=== PATIENT | male | born 1935 | race Two or more races ===

== ENCOUNTER 2023-12-21 12:41 | Inpatient (IN) | payer OTHER ==
[~2023-12-21] VITALS: Ht 165.1 cm; Wt 40.6 kg
[2023-12-21 12:55] VITALS: O2SAT 87
[2023-12-21 13:01] LABS: Base Excess 0.9 mmol/L (-2.0-2.0)
[2023-12-21] MEDS: ALBUTEROL SULF 2.5 MG/0.5ML(0.5%) NEB SOLN HHN ONE (13:08)
[2023-12-21] MEDS: IPRATROPIUM BROM 0.5 MG/2.5ML INH SOL HHN ONE (13:09)
[2023-12-21 13:17] LABS: Hematocrit 40.6 % (41.0-53.0); Hemoglobin 13.3 g/dL (13.5-17.5); Mean Corpuscular Hemoglobin 28.1 pg (28.0-32.0); Mean Corpuscular Hgb Conc. 32.7 g/dL (32.0-36.0); Red Blood Cells 4.73 10^6/uL (4.5-5.90); Red Cell Distribution Width 15.8 % (11.8-14.3); White Blood Cell 15.8 10^3/uL (4.4-10.8)
[2023-12-21 13:21] LABS: Basophils % (manual) 0 (0.0-2.0); Blast Cells 0; Eosinophils % (manual) 0 (0-7); Metamyelocytes % 0; Myelocytes % 0; Promyelocytes % 0; Reactive Lymphocytes 0
[2023-12-21] MEDS: methylPREDNISolone SOD SUCC 125 MG/2 ML VL IV ONE (13:21)
[2023-12-21 13:34] LABS: Anion Gap 11 (5-15); Carbon Dioxide 26 mmol/L (20-30); Chloride 104 mmol/L (98-107); Potassium 3.4 mmol/L (3.5-5.1); Sodium 141 mmol/L (136-145)
[2023-12-21 13:35] LABS: Calcium 8.7 mg/dL (8.7-10.4)
[2023-12-21 13:40] LABS: BUN/Creatinine Ratio 18.6 (10.0-20.0); Blood Urea Nitrogen 11 mg/dL (9-23); Glucose 196 mg/dL (74-106)
[2023-12-21 13:51] LABS: Lactic Acid w/Reflex 3.9 mmol/L (0.4-2.0)
[2023-12-21 14:39] LABS: Band Neutrophils % (manual) 7; Lymphocytes % (manual) 4 (10.0-50.0); Monocytes % (manual) 3 (0-12); Platelet Estimate Adequate
[2023-12-21 14:49] LABS: COVID19 ANTIGEN SOFIA FIA NEGATIVE (NEGATIVE)
[2023-12-21] MEDS: cefTRIAXone 1GM/50ML D5W 50 ML IV ONE (15:08)
[2023-12-21] MEDS: VANCOMYCIN 1GM/200ML 200 ML IV ONE (16:06)
[2023-12-21 20:00] VITALS: PULSE 93; RESP 17; O2SAT 99
[2023-12-21] MEDS ORDERED: ACETAMINOPHEN 325 MG TAB PO PRN (20:45)
[2023-12-21] MEDS ORDERED: HYDROcodone-ACET 5/325MG TAB PO PRN (20:45)
[2023-12-21] MEDS ORDERED: ONDANSETRON HCL 4 MG/2 ML VIAL IV PRN (20:45)
[2023-12-21] MEDS: NOREPINEPHRINE 8 MG/250ML KIT 250 ML IV SCH (22:02)
[2023-12-21 22:08] LABS: Base Excess 4.7 mmol/L (-2.0-2.0)
[2023-12-21 22:10] VITALS: PULSE 89; RESP 18; O2SAT 97
[2023-12-21] MEDS: IPRATROPIUM BROM 0.5 MG/2.5ML INH SOL NEB SCH (22:15)
[2023-12-21] MEDS: ALBUTEROL SULF 2.5 MG/0.5ML(0.5%) NEB SOLN NEB PRN (22:15)
[2023-12-21 22:18] VITALS: PULSE 92; RESP 18; O2SAT 97
[2023-12-21] MEDS: SODIUM CHLORIDE 0.9% 1,000 ML IV ONE (22:27)
[2023-12-21] MEDS: methylPREDNISolone SOD SUCC 40 MG/ML VL IV SCH (22:27)
[2023-12-21 22:51] VITALS: BP 87/53; PULSE 92; RESP 18; O2SAT 97
[2023-12-22] VITALS (15 sets, daily range): BP systolic 106; BP diastolic 69; PULSE 71–111; RESP 12–20; TEMP 97.8; O2SAT 94–100
[2023-12-22] MEDS ORDERED: HEPARIN SODIUM (PORCINE) 5000 UNITS/ML 1ML VIAL IV ONE ×2 (01:30→03:15)
[2023-12-22 01:59] LABS: Basophils # (auto) 0 10 ^3/uL (0-0.2); Eosinophils # (auto) 0 10 ^3/uL (0-0.8); Hematocrit 36.9 % (41.0-53.0); Hemoglobin 12.1 g/dL (13.5-17.5); Lymphocytes # (auto) 0.6 10 ^3/uL (0.4-5.4); Lymphocytes % (auto) 4.9 % (10.0-50.0); Mean Corpuscular Hgb Conc. 32.7 g/dL (32.0-36.0); Mean Corpuscular Volume 85.6 fL (80.0-100.0); Monocytes # (auto) 0.1 10 ^3/uL (0-1.3); Monocytes % (auto) 1.2 % (0.0-12.0); Neutrophils % (auto) 93.9 % (37.0-80.0); Red Blood Cells 4.31 10^6/uL (4.5-5.90); Red Cell Distribution Width 15.9 % (11.8-14.3); White Blood Cell 11.7 10^3/uL (4.4-10.8)
[2023-12-22 02:17] LABS: INR 1.25 (0.9-1.15); Partial Thromboplastin Time 26.6 SEC (24.5-34.5)
[2023-12-22] MEDS: ALBUTEROL SULF 2.5 MG/0.5ML(0.5%) NEB SOLN NEB PRN (02:27)
[2023-12-22] MEDS: POTASSIUM CHL 20MEQ/100ML 100 ML IV ONE (02:36)
[2023-12-22] MEDS: ASPirin 325 MG TAB PO ONE (03:02)
[2023-12-22] MEDS: HEPARIN SODIUM (PORCINE) 5000 UNITS/ML 1ML VIAL IV ONE (03:13)
[2023-12-22] MEDS: HEPARIN DRIP/D5W 100UNITS/ML 250 ML IV SCH ×2 (03:23→16:37)
[2023-12-22 04:55] LABS: Basophils # (auto) 0 10 ^3/uL (0-0.2); Basophils % (auto) 0.1 % (0.0-2.0); Eosinophils # (auto) 0 10 ^3/uL (0-0.8); Hematocrit 34.9 % (41.0-53.0); Hemoglobin 11.5 g/dL (13.5-17.5); Lymphocytes # (auto) 0.5 10 ^3/uL (0.4-5.4); Lymphocytes % (auto) 5.6 % (10.0-50.0); Mean Corpuscular Hgb Conc. 32.9 g/dL (32.0-36.0); Mean Corpuscular Volume 84.9 fL (80.0-100.0); Monocytes # (auto) 0.2 10 ^3/uL (0-1.3); Monocytes % (auto) 1.8 % (0.0-12.0); Neutrophils # (auto) 8.8 10 ^3/uL (1.6-8.6); Neutrophils % (auto) 92.5 % (37.0-80.0); Nucleated Red Blood Cells % 0.1 %; Red Blood Cells 4.11 10^6/uL (4.5-5.90); Red Cell Distribution Width 15.9 % (11.8-14.3); White Blood Cell 9.5 10^3/uL (4.4-10.8)
[2023-12-22 05:09] LABS: Chloride 105 mmol/L (98-107); Potassium 3.5 mmol/L (3.5-5.1); Sodium 140 mmol/L (136-145)
[2023-12-22 05:10] LABS: Anion Gap 5 (5-15); Carbon Dioxide 30 mmol/L (20-30)
[2023-12-22 05:11] LABS: Calcium 8.3 mg/dL (8.5-10.1)
[2023-12-22 05:16] LABS: BUN/Creatinine Ratio 21.4 (10.0-20.0); Blood Urea Nitrogen 12 mg/dL (9-23); Glucose 173 mg/dL (74-106)
[2023-12-22 06:30] LABS: Urine Bacteria None Seen /hpf (None Seen)
[2023-12-22 06:41] LABS: Urine Blood 2+ /uL (Negative); Urine Clarity Turbid (Clear); Urine Color Yellow (Yellow); Urine Hyaline Cast FEW /lpf (0 - 2); Urine Mucus FEW (None Seen); Urine Protein, UAD 1+ (Negative); Urine Specific Gravity 1.029 (1.001-1.035); Urine Urobilinogen Normal (Negative); Urine WBC 4 /hpf (0 - 3); Urine pH 5.5 (5.0-9.0)
[2023-12-22 09:52] LABS: INR 1.16 (0.9-1.15); Partial Thromboplastin Time 57.2 SEC (24.5-34.5); Prothrombin Time 12.2 sec (9.3-11.8)
[2023-12-22] MEDS ORDERED: ENOXAPARIN SOD 30 MG/0.3 ML SYRINGE SC SCH (10:00)
[2023-12-22] MEDS ORDERED: levoFLOXacin 500MG 100 ML IV SCH (10:00)
[2023-12-22] MEDS: PANTOPRAZOLE 40 MG/10 ML VIAL INJ IV SCH (10:18)
[2023-12-22 16:24] LABS: INR 1.13 (0.9-1.15); Prothrombin Time 11.9 sec (9.3-11.8)
[2023-12-22] MEDS: SODIUM CHLORIDE 0.9% 1,000 ML IV SCH (18:30)
[2023-12-22] MEDS: ATORVASTATIN 20 MG TAB PO SCH (22:05)
[2023-12-22 22:47] LABS: INR 1.13 (0.9-1.15); Prothrombin Time 11.9 sec (9.3-11.8)
[2023-12-22 22:51] LABS: Partial Thromboplastin Time 85.7 SEC (24.5-34.5)
[2023-12-23] VITALS (41 sets, daily range): BP systolic 96–148; BP diastolic 59–98; PULSE 64–130; RESP 14–33; TEMP 97.6–98.4; O2SAT 84–100
[2023-12-23] MEDS: HEPARIN DRIP/D5W 100UNITS/ML 250 ML IV SCH ×2 (01:17→12:12)
[2023-12-23 05:05] LABS: Basophils # (auto) 0 10 ^3/uL (0-0.2); Eosinophils # (auto) 0 10 ^3/uL (0-0.8); Hematocrit 34.9 % (41.0-53.0); Hemoglobin 11.7 g/dL (13.5-17.5); Lymphocytes # (auto) 0.6 10 ^3/uL (0.4-5.4); Lymphocytes % (auto) 5.8 % (10.0-50.0); Mean Corpuscular Hemoglobin 28.7 pg (28.0-32.0); Mean Corpuscular Hgb Conc. 33.6 g/dL (32.0-36.0); Mean Corpuscular Volume 85.4 fL (80.0-100.0); Monocytes # (auto) 0.2 10 ^3/uL (0-1.3); Monocytes % (auto) 2.4 % (0.0-12.0); Neutrophils # (auto) 8.8 10 ^3/uL (1.6-8.6); Neutrophils % (auto) 91.8 % (37.0-80.0); Red Blood Cells 4.09 10^6/uL (4.5-5.90); Red Cell Distribution Width 15.8 % (11.8-14.3); White Blood Cell 9.6 10^3/uL (4.4-10.8)
[2023-12-23 05:12] LABS: Anion Gap 4 (5-15); Carbon Dioxide 29 mmol/L (20-30); Chloride 107 mmol/L (98-107); Potassium 3.2 mmol/L (3.5-5.1); Sodium 140 mmol/L (136-145)
[2023-12-23 05:13] LABS: Calcium 8.3 mg/dL (8.5-10.1)
[2023-12-23 05:17] LABS: INR 1.13 (0.9-1.15); Partial Thromboplastin Time 52.4 SEC (24.5-34.5); Prothrombin Time 11.9 sec (9.3-11.8)
[2023-12-23 05:18] LABS: Blood Urea Nitrogen 9 mg/dL (9-23); Glucose 138 mg/dL (74-106)
[2023-12-23 08:45] LABS: Base Excess 3.2 mmol/L (-2.0-2.0)
[2023-12-23] MEDS: FUROSEMIDE 20 MG/2 ML VIAL IV ONE (09:25)
[2023-12-23] MEDS: ASPirin-EC 81 mg tab PO SCH (09:55)
[2023-12-23] MEDS: cefTRIAXone 1GM/50ML D5W 50 ML IV SCH (10:03)
[2023-12-23] MEDS: POTASSIUM CHL 20MEQ/100ML 100 ML IV ONE (10:03)
[2023-12-23 10:18] LABS: Base Excess 2.9 mmol/L (-2.0-2.0)
[2023-12-23 11:50] LABS: INR 1.12 (0.9-1.15); Partial Thromboplastin Time 43.3 SEC (24.5-34.5); Prothrombin Time 11.8 sec (9.3-11.8)
[2023-12-23] MEDS: D5W/SOD CHL 0.45% 1,000 ML IV SCH (13:53)
[2023-12-23] MEDS: MORPHINE SULFATE INJ 2 MG/ml SYRG IV PRN (15:04)
[2023-12-23] MEDS: ACETYLCYSTEINE 20%(200MG/ML) SOL 4ML NEB SCH (15:16)
[2023-12-23 18:35] LABS: INR 1.14 (0.9-1.15); Partial Thromboplastin Time 62.4 SEC (24.5-34.5)
[2023-12-24] VITALS (61 sets, daily range): BP systolic 86–122; BP diastolic 58–88; PULSE 68–122; RESP 11–24; TEMP 97.2–98.9; O2SAT 92–100
[2023-12-24 01:00] LABS: INR 1.13 (0.9-1.15); Prothrombin Time 11.9 sec (9.3-11.8)
[2023-12-24 05:21] LABS: Basophils # (auto) 0 10 ^3/uL (0-0.2); Basophils % (auto) 0.1 % (0.0-2.0); Eosinophils # (auto) 0 10 ^3/uL (0-0.8); Hematocrit 39.2 % (41.0-53.0); Hemoglobin 12.9 g/dL (13.5-17.5); Lymphocytes # (auto) 0.3 10 ^3/uL (0.4-5.4); Lymphocytes % (auto) 3.1 % (10.0-50.0); Mean Corpuscular Hemoglobin 28.4 pg (28.0-32.0); Mean Corpuscular Hgb Conc. 32.9 g/dL (32.0-36.0); Mean Corpuscular Volume 86.6 fL (80.0-100.0); Monocytes # (auto) 0.4 10 ^3/uL (0-1.3); Monocytes % (auto) 3.5 % (0.0-12.0); Neutrophils # (auto) 9.6 10 ^3/uL (1.6-8.6); Neutrophils % (auto) 93.3 % (37.0-80.0); Red Blood Cells 4.53 10^6/uL (4.5-5.90); Red Cell Distribution Width 16.2 % (11.8-14.3); White Blood Cell 10.3 10^3/uL (4.4-10.8)
[2023-12-24 05:29] LABS: Anion Gap 8 (5-15); Carbon Dioxide 25 mmol/L (20-30); Chloride 106 mmol/L (98-107); Potassium 3.7 mmol/L (3.5-5.1); Sodium 139 mmol/L (136-145)
[2023-12-24 05:30] LABS: Calcium 8.6 mg/dL (8.5-10.1)
[2023-12-24 05:35] LABS: BUN/Creatinine Ratio 25.4 (10.0-20.0); Blood Urea Nitrogen 15 mg/dL (9-23); Glucose 178 mg/dL (74-106)
[2023-12-24 05:44] LABS: INR 1.12 (0.9-1.15); Prothrombin Time 11.8 sec (9.3-11.8)
[2023-12-24 05:48] LABS: Partial Thromboplastin Time 79.8 SEC (24.5-34.5)
[2023-12-24] MEDS: HEPARIN DRIP/D5W 100UNITS/ML 250 ML IV SCH (13:00)
[2023-12-24 13:32] LABS: INR 1.11 (0.9-1.15); Prothrombin Time 11.7 sec (9.3-11.8)
[2023-12-24 14:34] LABS: Base Excess 3.5 mmol/L (-2.0-2.0)
[2023-12-24 16:20] LABS: Base Excess 3.6 mmol/L (-2.0-2.0)
[2023-12-24] MEDS ORDERED: IPRA0.00 IN (17:13)
[2023-12-24] MEDS ORDERED: ATOR20TA50 PO (17:13)
[2023-12-24] MEDS ORDERED: ASPI-543 PO (17:13)
[2023-12-24] MEDS ORDERED: FURO1TAB31 PO (17:13)
== END 2023-12-24 19:12 | disposition hospice, home (50) | DRG 280 ==
LOC: EDBD 12:41 → ER 12:50 → EDBD 12:50 → TELE 21:13 → TELE-WESTW 12-22 22:35 → DOU IN ICU 12-23 12:38
PROVIDERS: ADMIT Nurse Practitioner Family; ATTEND Nurse Practitioner Family
PROC: 06HY33Z Insertion of Infusion Device into Lower Vein, Percutaneous Approach (ICD-10-PCS; 2023-12-21)
PROC: 5A09457 Assistance with Respiratory Ventilation, 24-96 Consecutive Hours, Continuous Positive Airway Pressure (ICD-10-PCS; principal; 2023-12-23)
DX: I21.4 Non-ST elevation (NSTEMI) myocardial infarction (principal); J96.21 Acute and chronic respiratory failure with hypoxia; I47.10 Supraventricular tachycardia, unspecified; J44.0 Chronic obstructive pulmonary disease with (acute) lower respiratory infection; I50.22 Chronic systolic (congestive) heart failure; Z20.822 Contact with and (suspected) exposure to COVID-19; F03.90 Unspecified dementia, unspecified severity, without behavioral disturbance, psychotic disturbance, mood disturbance, and anxiety; Z74.01 Bed confinement status; Z86.73 Personal history of transient ischemic attack (TIA), and cerebral infarction without residual deficits; Z87.891 Personal history of nicotine dependence
CPT/HCPCS: 36415; 36600; 71045; 80048; 81001; 82607; 82805; 82962; 83605; 83735; 83880; 84443; 84484; 85007; 85025; 85027; 85610; 85730; 87040; 87081; 87086; 87426; 92610; 93005; 93306; 94640; 94644; 94660; 94667; 96361; 96365; 96366; 96367; 96375; 96376; C9113; G0378; J3480